=== PATIENT | female | born 1975 | race Caucasian/White ===

== ENCOUNTER 2017-08-27 16:15 | Emergency (ER) | payer BC, MEDICAID ==
[~2017-08-27] VITALS: Ht 165.1 cm; Wt 95.0 kg
[2017-08-27] MEDS ORDERED: ONDANSETRON 2MG/ML, 2ML ONE (16:47)
[2017-08-27] MEDS ORDERED: morphine SULFATE 10 MG/ML, 1ML ONE (16:47)
[2017-08-27] MEDS ORDERED: SODIUM CHLORIDE FLUSH 10ML SYR IVF ONE (17:00)
[2017-08-27] MEDS ORDERED: MORPHINE SULFATE 4 MG/ML, 1ML IVPush PRN (17:00)
[2017-08-27] MEDS ORDERED: ONDANSETRON 2MG/ML, 2ML IVPush ONE (17:00)
[2017-08-27 17:18] LABS: HEMATOCRIT 40.4 % (34.6-47.8); HEMOGLOBIN 13.8 g/dL (11.7-16.4); WHITE BLOOD COUNT 5.1 x10^3/uL (3.4-10)
[2017-08-27 17:23] LABS: BLOOD UREA NITROGEN 8 mg/dL (7-18)
[2017-08-27 17:28] LABS: IS PT STATUS REG ER OR PRE ER? YES
[2017-08-27] MEDS ORDERED: KETOROLAC 30 MG/1 ML ONE (18:29)
[2017-08-27] MEDS ORDERED: KETOROLAC 30 MG/1 ML IVPush ONE (18:30)
[2017-08-27 18:47] VITALS: BP 120/71
== END 2017-08-27 18:49 | disposition home or self-care (01) ==
LOC: ED 18:12
DX: R07.89 Other chest pain (principal); I10 Essential (primary) hypertension
CPT/HCPCS: 36415; 71010; 80048; 82040; 83880; 84484; 85025; 93005; 96374; 96375; 99285; J1885; J2405